=== PATIENT | female | born 1975 | race African-American/Black ===

== ENCOUNTER 2022-02-09 07:04 | Inpatient (IN) | payer MEDICARE, OTHER ==
[~2022-02-09] VITALS: Ht 160 cm; Wt 62.1 kg
--- NOTE | 2022-02-09 07:55 | NUR ---
TECH AT BEDSIDE FOR EKG
--- NOTE | 2022-02-09 08:00 | NUR ---
LAC #20, BLOOD DRAWN AND COLLECTED BY PHLEB AT BEDSIDE.
[2022-02-09 08:05] LABS: BASOPHILS # (AUTO) 0.1 K/uL (0.0-0.2); EOSINOPHILS % (AUTO) 0.8 % (0.0-6.0); HEMATOCRIT 27 % (33-45); HEMOGLOBIN 9.7 g/dL (11.5-14.8); LYMPHOCYTES # (AUTO) 0.4 K/uL (0.8-4.8); LYMPHOCYTES % (AUTO) 4.3 % (20.0-44.0); MEAN CORPUSCULAR HGB CONC 35 g/dl (31.0-36.0); MEAN CORPUSCULAR VOLUME 92 fL (82-100); MONOCYTES # (AUTO) 0.6 K/uL (0.1-1.30); MONOCYTES % (AUTO) 5.9 % (2.0-12.0); NEUTROPHILS # (AUTO) 8.7 K/uL (1.8-8.9); PLATELET COUNT (AUTO) 322 K/uL (150-450); RED BLOOD CELL COUNT(AUTO) 2.98 MIL/uL (4.0-5.2); WHITE BLOOD COUNT (AUTO) 9.9 K/uL (4.3-11.0)
[2022-02-09] MEDS ORDERED: MORPHINE SULFATE INJ 2 MG/ML DISP.SYRIN IV ONE ×2 (08:30→12:00)
[2022-02-09] MEDS ORDERED: MORPHINE SULFATE INJ 4 MG/ML DISP.SYRIN ONE ×2 (08:31→12:11)
--- NOTE | 2022-02-09 08:45 | NUR ---
COVID SWAB COLLECTED AND SENT TO LAB
[2022-02-09] MEDS ORDERED: IOHEXOL-350 100 ML VIAL IV ONE (08:52)
[2022-02-09] MEDS ORDERED: IV NS 0.9% 250 ML IV ONE (08:53)
[2022-02-09] MEDS ORDERED: CT SWABBABLE VALVE TRANS SET 1 EA INFUS.SET MC ONE (08:53)
[2022-02-09 09:00] LABS: CALCIUM, SERUM 8.4 mg/dL (8.5-10.1); CARBON DIOXIDE 23 mmol/L (21-32); CHLORIDE 103 mmol/L (98-107); CREATININE 0.7 mg/dL (0.6-1.3); GLUCOSE 125 mg/dL (74-106); POTASSIUM 3.4 mmol/L (3.5-5.1); SODIUM SERUM 138 mmol/L (136-145)
[2022-02-09] MEDS ORDERED: ONDANSETRON HCL/PF 4 MG/2 ML VIAL ONE (09:12)
[2022-02-09] MEDS ORDERED: GABA300C PO (09:13)
[2022-02-09] MEDS ORDERED: APIX5TAB PO (09:13)
[2022-02-09] MEDS ORDERED: APIX2.5T PO (09:13)
[2022-02-09] MEDS ORDERED: LISI2.5T2 PO (09:13)
[2022-02-09] MEDS ORDERED: VOXE500T PO (09:13)
[2022-02-09] MEDS ORDERED: ACET600C PO (09:14)
[2022-02-09] MEDS ORDERED: FERR325T23 PO (09:14)
[2022-02-09] MEDS ORDERED: CHOL200059 PO (09:14)
[2022-02-09] MEDS ORDERED: [UNRECOGNIZED DRUG - CODE] PO (09:14)
[2022-02-09] MEDS ORDERED: FOLI0.8T3 PO (09:14)
[2022-02-09] MEDS ORDERED: MULT-439 PO (09:14)
[2022-02-09] MEDS ORDERED: HYDR500C2 PO ×2 (09:14)
[2022-02-09] MEDS ORDERED: RIBO100T6 PO (09:14)
[2022-02-09] MEDS ORDERED: CALC-1143 PO (09:14)
[2022-02-09] MEDS ORDERED: ONDANSETRON HCL/PF 4 MG/2 ML VIAL IV ONE (09:30)
--- NOTE | 2022-02-09 11:10 | NUR ---
DR LAINEY CEBALLOS (HEMATOLOGY/ONCOLOGY) [phone]
--- NOTE | 2022-02-09 11:16 | NUR ---
CALLED DR. CEBALLOS'S OFFICE, PER DRUG DEPARTMENT WORKER, DR CEBALLOS IS NOT AVAILABLE AT THIS TIME BUT HAS A NURSE AVAILABLE.
--- NOTE | 2022-02-09 11:20 | NUR ---
DR MCKAY ON THE PHONE W/ CHONG MANNING AT DR. CEBALLOS'S OFFICE
[2022-02-09 11:27] LABS: UREA NITROGEN, BLOOD 14 mg/dL (7-18)
--- NOTE | 2022-02-09 11:43 | NUR ---
PAGED EPIC OUTREACH WORKER
--- NOTE | 2022-02-09 11:44 | NUR ---
EPIC CONTACT WORKER AND ER MD TALKING ON PHONE
[2022-02-09] MEDS ORDERED: hydrALAZINE HCL IV 20 MG VIAL IV PRN (12:00)
[2022-02-09] MEDS ORDERED: ONDANSETRON HCL/PF 4 MG/2 ML VIAL IVP PRN (12:00)
[2022-02-09] MEDS ORDERED: MAG HYDROX/AL HYDROX/SIMETH 30 ML UDC PO PRN (12:00)
[2022-02-09] MEDS ORDERED: IV NS 0.9% 1,000 ML IV SCH (12:00)
--- NOTE | 2022-02-09 12:09 | NUR ---
PT SEEN BY DR BURKS AT BEDSIDE
[2022-02-09] MEDS ORDERED: MORPHINE SULFATE INJ 2 MG/ML DISP.SYRIN ONE (12:10)
--- NOTE | 2022-02-09 12:22 | NUR ---
[facility] AT BEDSIDE FOR ULTRASOUND
--- NOTE | 2022-02-09 13:23 | NUR ---
BED 321-1. NURSE AMINA
--- NOTE | 2022-02-09 13:27 | NUR ---
ROOM 328-1
--- NOTE | 2022-02-09 14:01 | NUR ---
PT REPORT GIVEN TO CHONG SOTO
--- NOTE | 2022-02-09 14:25 | NUR ---
ADMISSION NOTES: ADMITTED A 46YO FEMALE PT, TRANSFERRED VIA GURNEY,PT ALERT AND ORIENTED X 4 AND ABLE TO VERBALIZED NEEDS. PT IN PAIN, NO CARDIAC OR RESPIRATORY DISTRESS NOTED. PT ON AUDIOVISUAL LIBRARIAN WITH CURRENT READING OF SINUS RHYTHM 63 BPM. IV ACCESS ON LAC GAUGE 20 PATENT INTACT AND INFUSING NS 150ML/HR. NO ABDOMINAL DISTENTION, NOTED WITH OLD SURGICAL SITE ON RIGHT UPPER ABDOMEN (BILIARY STONE REMOVAL AND LIVER BIOPSIES). ALL BELONGINGS LISTED AND SIGNED, MONEY WAS GIVEN TO BROTHER. IDENTIFICATION IN PLACE. PT STABLE VS.
--- NOTE | 2022-02-09 14:30 | NUR ---
pt transferred to 328-1 via [facility] acls protocol. warm handoff given to yee pérez
[2022-02-09] MEDS: MORPHINE SULFATE INJ 2 MG/ML DISP.SYRIN IV PRN ×3 (14:35→21:09)
[2022-02-09] MEDS: IV NS 0.9% 1,000 ML IV PRN (15:03)
[2022-02-09] MEDS ORDERED: diphenhydrAMINE HCL 50 MG/ML VIAL IV PRN (16:00)
[2022-02-09] MEDS: FERROUS SULFATE (325 MG) 325 MG/TAB TABLET PO SCH (16:25)
[2022-02-09] MEDS: GABAPENTIN 300 MG CAPSULE PO SCH (16:26)
[2022-02-09] MEDS ORDERED: RIBOFLAVIN PO SCH (17:00)
[2022-02-09] MEDS ORDERED: HYDROMORPHONE 1 MG/1 ML DISP.SYRIN IV ONE ×2 (18:30→19:00)
[2022-02-09] MEDS ORDERED: POTASSIUM CHLORIDE 20 MEQ TAB.PRT.SR PO ONE (18:30)
--- NOTE | 2022-02-09 19:33 | NUR ---
PROMOTION PRODUCER CLOSING NOTES: PT IN BED RESTING, ALERT AND ORIENTED X 4 AND ABLE TO MAKE NEEDS KNOWN,NO SOB OR CARDIAC DISTRESS ON O2 INHALATION @ 2LPM VIA NC. WINDOWS DEPLOYMENT TECHNICIAN WITH CURRENT READING SR 78 BPM. IV ACCESS ON LAC GAUGE 20 NS 150 ML/HR. SAFETY MEASURES MAINTAINED. BED LOCKED AND IN LOWEST POSITION, SIDE RAILS UP X 2. CALL LIGHT IN EASY REACH. ENDORSED TO FERMENTATION OPERATOR FOR NATACHA.
[2022-02-09 20:08] LABS: HEMOGLOBIN 9.8 g/dL (11.5-14.8)
--- NOTE | 2022-02-09 20:30 | NUR ---
TELE BOOKING AGENT INITIAL NOTES Received pt in bed with IVF of Ns at 150ml/hr infusing on her left AC patent and intact. Pt still eating her dinner at this time. no aspiration noted. Respiration even and non-labored . skin warm to touch .pt on tele SR with PVC's per monitor . Kept her warm and comfortable at all times. Encourage her to use the call light if she needs help or assistance. will continue monitoring.
[2022-02-09 21:04] VITALS: BP 113/67
[2022-02-09] MEDS: VOXELOTOR 500 MG PO SCH (22:38)
[2022-02-09] MEDS: APIXABAN 2.5 MG TABLET PO SCH (22:38)
[2022-02-09] MEDS: ACETAMINOPHEN 325 MG TABLET PO PRN (22:39)
[2022-02-09] MEDS: LISINOPRIL (5MG) 5 MG TABLET PO SCH (22:40)
[2022-02-10] VITALS (7 sets, daily range): BP systolic 105–119; BP diastolic 60–73
[2022-02-10] MEDS: MORPHINE SULFATE INJ 2 MG/ML DISP.SYRIN IV PRN ×2 (01:17→14:59)
[2022-02-10] MEDS: IV NS 0.9% 1,000 ML IV PRN ×2 (02:01→18:09)
[2022-02-10] MEDS: ACETAMINOPHEN 325 MG TABLET PO PRN (03:36)
[2022-02-10] MEDS ORDERED: HYDROCODONE/APAP 5/325MG TABLET PO ONE (04:00)
--- NOTE | 2022-02-10 05:18 | NUR ---
hotel breakfast attendant notes Powderly tablet given as ordered per generalized pain . Md aware that pt allergy with codeine and hydromorphone , pt also aware regarding her allergy and she stated that norco 5/325 the one that she's taking at home and doesn't have any adverse reaction . will continue monitoring.
--- NOTE | 2022-02-10 07:03 | NUR ---
tele clutch operator notes Pt awake and wants to used the restroom, ambulate with some assistance. no signs of any distress noted all due meds given . still with IVF of NS at 150 ml/hr . Pt. Tele SR heart rate 94 . Kept her warm and comfortable at all times. will endorse to am nurse for continuity of care.
[2022-02-10 07:11] LABS: ALBUMIN 3.7 g/dL (3.4-5.0); BILIRUBIN,TOTAL 1.1 mg/dL (0.2-1.0); CALCIUM, SERUM 7.8 mg/dL (8.5-10.1); CREATININE 0.7 mg/dL (0.6-1.3); MAGNESIUM 1.9 mg/dL (1.8-2.4); PHOSPHORUS 3.3 mg/dL (2.5-4.9); TOTAL PROTEIN, SERUM 6.8 g/dL (6.4-8.2)
[2022-02-10 07:42] LABS: BASOPHILS % (AUTO) 0.3 % (0.0-2.0); EOSINOPHILS % (AUTO) 0.5 % (0.0-6.0); HEMATOCRIT 26 % (33-45); HEMOGLOBIN 8.9 g/dL (11.5-14.8); LYMPHOCYTES # (AUTO) 1.2 K/uL (0.8-4.8); LYMPHOCYTES % (AUTO) 8.8 % (20.0-44.0); MEAN CORPUSCULAR HGB CONC 35 g/dl (31.0-36.0); MEAN CORPUSCULAR VOLUME 93 fL (82-100); MONOCYTES # (AUTO) 1.5 K/uL (0.1-1.30); MONOCYTES % (AUTO) 10.5 % (2.0-12.0); NEUTROPHILS # (AUTO) 11.3 K/uL (1.8-8.9); NEUTROPHILS % (AUTO) 79.9 % (43.0-81.0); PLATELET COUNT (AUTO) 278 K/uL (150-450); RED BLOOD CELL COUNT(AUTO) 2.74 MIL/uL (4.0-5.2); WHITE BLOOD COUNT (AUTO) 14.1 K/uL (4.3-11.0)
--- NOTE | 2022-02-10 07:50 | NUR ---
MS CARBURETOR REBUILDER OPENING NOTES RECEIVED PT IN BED AWAKE, A/O X 4 AND ABLE TO MAKE NEEDS KNOWN, NO SOB OR CARDIAC DISTRESS ON O2 INHALATION @ 2LPM VIA NC. WATERSHED PROGRAM MANAGER WITH CURRENT READING SR 82 BPM. IV ACCESS ON LAC GAUGE 20 NS 150 ML/HR. SAFETY MEASURES MAINTAINED. BED LOCKED AND IN LOWEST POSITION, SIDE RAILS UP X 2. CALL LIGHT IN EASY REACH. WILL CONTINUE TO MONITOR
[2022-02-10] MEDS: GABAPENTIN 300 MG CAPSULE PO SCH ×2 (08:42→16:04)
[2022-02-10] MEDS: CALCIUM CARBONATE 500 MG TAB.CHEW PO SCH (08:42)
[2022-02-10] MEDS: MULTIVIT W/MINERALS 1 TAB TABLET PO SCH (08:42)
[2022-02-10] MEDS: CHOLECALCIFEROL 1,000 UNIT TABLET (VIT D3) PO SCH (08:43)
[2022-02-10] MEDS: FERROUS SULFATE (325 MG) 325 MG/TAB TABLET PO SCH ×2 (08:43→16:05)
[2022-02-10] MEDS: FOLIC ACID 1 MG TABLET PO SCH (08:43)
[2022-02-10] MEDS: APIXABAN 5 MG TABLET PO SCH (08:47)
[2022-02-10 08:57] LABS: HEMOGLOBIN 8.5 g/dL (11.5-14.8)
[2022-02-10] MEDS: HYDROXYUREA 500 MG CAPSULE PO SCH ×3 (09:00→12:55)
[2022-02-10] MEDS ORDERED: METHYLSULFONYLMETHANE PO SCH (09:00)
[2022-02-10] MEDS ORDERED: ACETYLCYSTEINE 600 MG PO SCH (09:00)
[2022-02-10] MEDS ORDERED: HYDROXYUREA 500 MG CAPSULE PO SCH (09:00)
[2022-02-10] MEDS: HYDROCODONE/APAP 5/325MG TABLET PO PRN ×3 (10:34→22:15)
--- NOTE | 2022-02-10 10:48 | NUR ---
pt complains of constipation. called dr Busby for order
[2022-02-10] MEDS: DOCUSATE SODIUM 100 MG CAPSULE PO SCH ×3 (10:57→16:10)
[2022-02-10] MEDS ORDERED: DOCUSATE SODIUM 100 MG CAPSULE PO PRN (11:00)
--- NOTE | 2022-02-10 14:52 | NUR ---
with allergy to contrast per patient. Likewise, patient requested Zofran prior to CT Angio procedure. Radiology was informed thru Octavio
--- NOTE | 2022-02-10 19:12 | NUR ---
TAXATION ECONOMIST CLOSING NOTES: PT IN BED RESTING, A/O X 4 AND ABLE TO MAKE NEEDS KNOWN, NO SOB OR CARDIAC DISTRESS ON O2 INHALATION @ 2LPM VIA NC. ASSET PROTECTION DETECTIVE WITH CURRENT READING SR 90 BPM. IV ACCESS ON LAC GAUGE 20 NS 150 ML/HR. SAFETY MEASURES MAINTAINED. BED LOCKED, IN LOWEST POSITION, SIDE RAILS UP X 2. CALL LIGHT IN EASY REACH. ENDORSED TO MANAGING DIRECTOR ATLAS FOR NATACHA.
--- NOTE | 2022-02-10 20:22 | NUR ---
TELE MORNING NEWS PRODUCER INITIAL NOTES Got report from am nurse and seen patient in bed still eating her dinner no aspiration or any N/V noted. . IVF Ns at 150ml/hr infusing at this time . Pt still with O2 at 2 liters via NC . no signs of any distress noted. Pt seems comfortable after norco tablet given earlier. I told her about her medication for tonight and pt understood well. Tele SR heart rate 89 . kept her warm and comfortable at all times. place call light at reach. will continue monitoring.
[2022-02-10 20:23] LABS: HEMOGLOBIN 8.9 g/dL (11.5-14.8)
[2022-02-10] MEDS: LISINOPRIL (5MG) 5 MG TABLET PO SCH (22:15)
[2022-02-10] MEDS: APIXABAN 2.5 MG TABLET PO SCH (22:16)
[2022-02-10] MEDS: VOXELOTOR 500 MG PO SCH (22:17)
--- NOTE | 2022-02-10 22:24 | NUR ---
CORPORATE STRATEGY ANALYST NOTES Routine meds given as well as Florence tablet for her generalized pain. Tele SR per monitor. Kept her warm and comfortable at all times. will continue monitoring. place call light at reach.
[2022-02-11] VITALS (7 sets, daily range): BP systolic 109–127; BP diastolic 58–71
[2022-02-11] MEDS: IV NS 0.9% 1,000 ML IV PRN ×3 (02:30→17:20)
[2022-02-11] MEDS: HYDROCODONE/APAP 5/325MG TABLET PO PRN ×3 (02:30→10:01)
--- NOTE | 2022-02-11 07:17 | NUR ---
tele office auditor closing notes Pt awake and alert asking for norco tablet for her generalized pain specially her back . No signs of any dizziness or any N/V. tele SR pr monitor. Assisted her to bathroom then back to bed for pt safety. kept her comfortable at all times. All due meds given and all needs met. call light at reach and bed in low and lock in position. Endorse to am nurse for continuity of care.
[2022-02-11 07:30] LABS: BASOPHILS % (AUTO) 0.2 % (0.0-2.0); EOSINOPHILS % (AUTO) 0.4 % (0.0-6.0); HEMATOCRIT 25 % (33-45); HEMOGLOBIN 8.6 g/dL (11.5-14.8); LYMPHOCYTES # (AUTO) 1.3 K/uL (0.8-4.8); MEAN CORPUSCULAR HGB CONC 35 g/dl (31.0-36.0); MEAN CORPUSCULAR VOLUME 93 fL (82-100); MONOCYTES # (AUTO) 1.1 K/uL (0.1-1.30); MONOCYTES % (AUTO) 7.6 % (2.0-12.0); NEUTROPHILS # (AUTO) 11.8 K/uL (1.8-8.9); NEUTROPHILS % (AUTO) 82.8 % (43.0-81.0); PLATELET COUNT (AUTO) 221 K/uL (150-450); RED BLOOD CELL COUNT(AUTO) 2.65 MIL/uL (4.0-5.2); WHITE BLOOD COUNT (AUTO) 14.3 K/uL (4.3-11.0)
[2022-02-11 07:44] LABS: BILIRUBIN,DIRECT 0.6 mg/dL (0.0-0.2); BILIRUBIN,TOTAL 1.7 mg/dL (0.2-1.0); CALCIUM, SERUM 7.6 mg/dL (8.5-10.1); CREATININE 0.6 mg/dL (0.6-1.3); POTASSIUM 3.9 mmol/L (3.5-5.1)
--- NOTE | 2022-02-11 07:55 | NUR ---
REHAB TECH OPENING NOTES RECEIVED PT IN BED AWAKE, A/O X 4 AND ABLE TO MAKE NEEDS KNOWN, NO SOB NOR CARDIAC DISTRESS ON O2 INHALATION @ 2LPM VIA NC. DENIES HAVING PAIN AT THE MOMENT. TRACK REPAIR SUPERVISOR WITH CURRENT READING ST IN 100S BPM. IV ACCESS ON LAC GAUGE 20. NS IV FLUID INFUSING @ 150 ML/HR. SAFETY MEASURES MAINTAINED. BED LOCKED AND IN LOWEST POSITION, SIDE RAILS UP X 2. CALL LIGHT IN EASY REACH. WILL CONTINUE TO MONITOR
[2022-02-11] MEDS: GABAPENTIN 300 MG CAPSULE PO SCH ×2 (09:59→17:19)
[2022-02-11] MEDS: DOCUSATE SODIUM 100 MG CAPSULE PO SCH ×2 (09:59→17:19)
[2022-02-11] MEDS: CALCIUM CARBONATE 500 MG TAB.CHEW PO SCH (09:59)
[2022-02-11] MEDS: FERROUS SULFATE (325 MG) 325 MG/TAB TABLET PO SCH ×2 (09:59→17:19)
[2022-02-11] MEDS: FOLIC ACID 1 MG TABLET PO SCH (09:59)
[2022-02-11] MEDS: CHOLECALCIFEROL 1,000 UNIT TABLET (VIT D3) PO SCH (10:00)
[2022-02-11] MEDS: HYDROXYUREA 500 MG CAPSULE PO SCH (10:01)
[2022-02-11] MEDS: MULTIVIT W/MINERALS 1 TAB TABLET PO SCH (10:02)
[2022-02-11] MEDS: APIXABAN 5 MG TABLET PO SCH (10:03)
[2022-02-11] MEDS: MORPHINE SULFATE INJ 2 MG/ML DISP.SYRIN IV PRN ×2 (15:51→22:09)
--- NOTE | 2022-02-11 18:53 | NUR ---
CARDING MACHINE OPERATOR CLOSING NOTE: PT IN BED RESTING, A/O X 4 AND ABLE TO MAKE NEEDS KNOWN, NO SOB OR CARDIAC DISTRESS ON O2 INHALATION @ 2LPM VIA NC. DIVISIONAL HUMAN RESOURCES DIRECTOR WITH CURRENT READING ST @ 116 BPM. ABDOMINAL ULTASOUND COMPLETED TODAY. POC IS NEXT TO DO CT OF HEART WITH 3D VIEW ON Sunday02/13/22. IV ACCESS ON LAC GAUGE 20 NS 150 ML/HR. SAFETY MEASURES MAINTAINED. BED LOCKED, IN LOWEST POSITION, SIDE RAILS UP X 2. CALL LIGHT IN EASY REACH. ENDORSED TO DIRECTOR OF SPEECH PATHOLOGY FOR NATACHA.
--- NOTE | 2022-02-11 19:30 | NUR ---
A P MANAGER OPENING NOTE RECEIVED PT AWAKE IN BED. A/O X4 AND ABLE TO MAKE NEEDS KNOWN. PT ON O2 @ 2LPM VIA NC, TOLERATING WELL. NO SOB OR S/S OF RESPIRATORY DISTRESS. BREATHING EVEN AND UNLABORED. ON EXTERNAL ASSISTANT STORE MANAGER SALES READING ST 116 BPM. IV ACCESS LAC 20G, INTACT AND PATENT, RUNNING NS @ 150 ML/HR. SAFETY PRECAUTIONS IN PLACE. BED IN LOWEST LOCKED POSITION, HOB ELEVATED, SIDE RAILS UP X2, AND CALL LIGHT AND TABLE WITHIN REACH. ALL NEEDS MET AT THIS TIME.
[2022-02-11 20:33] LABS: HEMOGLOBIN 8.1 g/dL (11.5-14.8)
[2022-02-11] MEDS ORDERED: CEFEPIME 1 GM in IV D5W 50 ML IV SCH (21:00)
[2022-02-11] MEDS ORDERED: VANCOMYCIN 1 GM in IV D5W 250ml IV ONE (21:30)
--- NOTE | 2022-02-11 21:30 | NUR ---
RN NOTE INFORMED CHARGE NURSE AND OPERATIONS BOARDMAN CEFEPIME AND VANCOMYCIN ORDERED. WILL ADMINISTER ONCE MEDICATION IS BROUGHT TO THE UNIT.
[2022-02-11] MEDS: ACETAMINOPHEN 325 MG TABLET PO PRN (21:41)
[2022-02-11] MEDS: VOXELOTOR 500 MG PO SCH (21:41)
--- NOTE | 2022-02-11 21:41 | NUR ---
RN NOTE PT NOTED WITH FEVER OF 102. ADMINISTERED TYLENOL ORDERED FOR FEVER. INFORMED RX SPECIALIST GINETTE WITH NEW ORDERS NOTED AND CARRIED OUT. ALL NEEDS MET AT THIS TIME.
[2022-02-11] MEDS: APIXABAN 2.5 MG TABLET PO SCH (21:42)
[2022-02-11] MEDS: LISINOPRIL (5MG) 5 MG TABLET PO SCH (21:43)
[2022-02-11] MEDS ORDERED: CEFEPIME 1 GM VIAL ONE (21:47)
--- NOTE | 2022-02-11 22:11 | NUR ---
RN NOTE PT COMPLAINED OF GENERALIZED PAIN 10/22. ADMINISTERED MORPHINE 4 MG FOR SEVERE PAIN ORDERED. MADE COMFORTABLE IN BED. ALL NEEDS MET AT THIS TIME.
[2022-02-11] MEDS ORDERED: VANCOMYCIN 1 GM VIAL ONE (22:17)
[2022-02-11 22:58] LABS: BILIRUBIN,URINE NEGATIVE (NEGATIVE); COLOR,URINE YELLOW (YELLOW); LEUKOCYTE ESTERASE ,URINE NEGATIVE (NEGATIVE); NITRITE, URINE NEGATIVE (NEGATIVE); PH,URINE 6.5 (5.0-8.0); PROTEIN,URINE TRACE mg/dl (NEGATIVE); UGLUCOSE NEGATIVE (NEGATIVE); UROBILINOGEN,URINE 0.2 EU/dL (0.2)
[2022-02-11 23:01] LABS: BACTERIA,URINE None seen /HPF (None Seen); SQUAMOUS EPITHELIAL CELL,UR Few /HPF (None Seen); WBC,URINE 0-2 /HPF (0-3)
--- NOTE | 2022-02-11 23:48 | NUR ---
RN NOTE CURRENT TEMPERATURE 98.7. ALL NEEDS MET AT THIS TIME.
[2022-02-12] VITALS: BP 109/61
[2022-02-12 04:00] VITALS: BP 107/64
[2022-02-12] MEDS: HYDROCODONE/APAP 5/325MG TABLET PO PRN ×3 (04:08→14:18)
[2022-02-12] MEDS: IV NS 0.9% 1,000 ML IV PRN (04:15)
--- NOTE | 2022-02-12 04:47 | NUR ---
RN NOTE PT COMPLAINED OF GENERALIZED PAIN 07/22. ADMINISTERED NORCO 5-325 MG FOR MODERATE PAIN ORDERED. MADE COMFORTABLE IN BED. ALL NEEDS MET AT THIS TIME.
--- NOTE | 2022-02-12 06:50 | NUR ---
GAME OPERATOR CLOSING NOTE PT AWAKE IN BED. A/O X4 AND ABLE TO MAKE NEEDS KNOWN. PT ON O2 @ 3LPM VIA NC, TOLERATING WELL. NO SOB OR S/S OF RESPIRATORY DISTRESS. BREATHING EVEN AND UNLABORED. ON EXTERNAL BLUING OVEN TENDER READING SR 95 BPM. IV ACCESS LAC 20G, INTACT AND PATENT, RUNNING NS @ 150 ML/HR. ALL DUE MEDS GIVEN ORDERED. SAFETY PRECAUTIONS IN PLACE AT ALL TIMES. BED IN LOWEST LOCKED POSITION, HOB ELEVATED, SIDE RAILS UP X2, AND CALL LIGHT AND TABLE WITHIN REACH. ALL NEEDS MET AT THIS TIME AND WILL ENDORSE TO ONCOMING NURSE FOR NATACHA.
[2022-02-12 07:00] VITALS: BP 106/60
[2022-02-12 07:21] LABS: BASOPHILS % (AUTO) 0.3 % (0.0-2.0); EOSINOPHILS % (AUTO) 0.5 % (0.0-6.0); HEMATOCRIT 22 % (33-45); HEMOGLOBIN 7.6 g/dL (11.5-14.8); LYMPHOCYTES % (AUTO) 7.1 % (20.0-44.0); MEAN CORPUSCULAR HGB CONC 35 g/dl (31.0-36.0); MEAN CORPUSCULAR VOLUME 92 fL (82-100); MONOCYTES # (AUTO) 1.3 K/uL (0.1-1.30); MONOCYTES % (AUTO) 9.2 % (2.0-12.0); NEUTROPHILS # (AUTO) 11.7 K/uL (1.8-8.9); NEUTROPHILS % (AUTO) 82.9 % (43.0-81.0); PLATELET COUNT (AUTO) 210 K/uL (150-450); RED BLOOD CELL COUNT(AUTO) 2.37 MIL/uL (4.0-5.2); WHITE BLOOD COUNT (AUTO) 14.1 K/uL (4.3-11.0)
[2022-02-12 07:30] LABS: CALCIUM, SERUM 7.7 mg/dL (8.5-10.1); CREATININE 0.5 mg/dL (0.6-1.3); POTASSIUM 2.9 mmol/L (3.5-5.1)
--- NOTE | 2022-02-12 07:30 | NUR ---
CUSTOMER SUPPORT ANALYST OPENING NOTES RECEIVED PATIENT ON BED, AWAKE AND A/O X4. ON O2 AT 3LPM VIA NASAL CANNULA TOLERATING WELL. NO SOB NOTED. NOT IN DISTRESS. WITH NO COMPLAINTS OF PAIN AT THIS TIME. WITH IV ACCESS AT THE LEFT AC G20 WITH IVF NS AT 150ML/HR INFUSING WELL. ON TELE MONITOR CURRENTLY READING SINUS TACHYCARDIA AT 108BPM. SAFETY MEASURES IN PLACED. CALL LIGHT WITHIN REACH. BED ON LOWEST LOCKED POSITION, SIDE RAILS UP X2. WILL CONTINUE TO MONITOR.
[2022-02-12 08:52] LABS: HEMOGLOBIN 7.8 g/dL (11.5-14.8)
[2022-02-12] MEDS: CALCIUM CARBONATE 500 MG TAB.CHEW PO SCH (09:45)
[2022-02-12] MEDS: DOCUSATE SODIUM 100 MG CAPSULE PO SCH ×2 (09:45→16:04)
[2022-02-12] MEDS: GABAPENTIN 300 MG CAPSULE PO SCH ×2 (09:45→16:04)
[2022-02-12] MEDS: FOLIC ACID 1 MG TABLET PO SCH (09:46)
[2022-02-12] MEDS: FERROUS SULFATE (325 MG) 325 MG/TAB TABLET PO SCH (09:46)
[2022-02-12] MEDS: CHOLECALCIFEROL 1,000 UNIT TABLET (VIT D3) PO SCH (09:46)
[2022-02-12] MEDS: HYDROXYUREA 500 MG CAPSULE PO SCH (09:46)
[2022-02-12] MEDS: MULTIVIT W/MINERALS 1 TAB TABLET PO SCH (09:46)
[2022-02-12] MEDS: CEFEPIME 2 GM in IV D5W 100 ML IV SCH ×2 (09:47→21:06)
[2022-02-12] MEDS ORDERED: MAGN200T4 PO (09:56)
[2022-02-12] MEDS: VANCOMYCIN 1 GM in IV D5W 250ml IV SCH ×2 (11:51→22:22)
[2022-02-12] MEDS: POTASSIUM CHLORIDE 20 MEQ TAB.PRT.SR PO SCH ×3 (11:51→15:36)
[2022-02-12] MEDS: APIXABAN 5 MG TABLET PO SCH (11:52)
[2022-02-12 13:49] LABS: IRON, SERUM 26 ug/dl (50-175); TOTAL IRON BINDING CAPACITY 125 ug/dl (250-450)
[2022-02-12 14:23] LABS: FERRITIN 707 ng/mL (8-388)
[2022-02-12 16:00] VITALS: BP 110/59
[2022-02-12] MEDS: MAGNESIUM OXIDE 400 MG TABLET PO SCH (16:04)
--- NOTE | 2022-02-12 19:30 | NUR ---
MANAGER ROUTE CLOSING NOTES PATIENT ON BED, RESTING AND A/O X4. ON O2 AT 3LPM VIA NASAL CANNULA TOLERATING WELL. NO SOB NOTED. NOT IN DISTRESS. WITH NO COMPLAINTS OF PAIN AT THIS TIME. WITH IV ACCESS AT THE LEFT AC G20 SALINE LOCKED, PATENT AND INTACT. ON TELE MONITOR CURRENTLY READING SINUS TACHYCARDIA AT 106BPM. DUE MEDS GIVEN. SAFETY MEASURES IN PLACED. CALL LIGHT WITHIN REACH. BED ON LOWEST LOCKED POSITION, SIDE RAILS UP X2. WILL ENDORSE TO NEXT SHIFT FOR NATACHA.
[2022-02-12 20:00] VITALS: BP 117/63
[2022-02-12 20:25] LABS: HEMOGLOBIN 7.7 g/dL (11.5-14.8)
--- NOTE | 2022-02-12 20:30 | NUR ---
MS/TELE/RN PATIENT IS IN BED AWAKE, ALERT, ORIENTED, NO C/O PAIN AT THIS TIME, NO SIGNS OF DISTRESS NOTED, CALL LIGHT IN REACH, WILL MONITOR.
[2022-02-12] MEDS: MORPHINE SULFATE INJ 2 MG/ML DISP.SYRIN IV PRN (20:58)
[2022-02-12] MEDS: ACETAMINOPHEN 325 MG TABLET PO PRN (21:02)
--- NOTE | 2022-02-12 21:02 | NUR ---
MS/TELE/RN TEMP 102.4, PATIENT REFUSED COOLING MEASURES, TYLENOL 650 MG PO WAS GIVEN ORDERED. WILL MONITOR.
[2022-02-12] MEDS: VOXELOTOR 500 MG PO SCH (22:22)
[2022-02-12] MEDS: LISINOPRIL (5MG) 5 MG TABLET PO SCH (22:24)
[2022-02-12] MEDS: APIXABAN 2.5 MG TABLET PO SCH (22:25)
[2022-02-13] VITALS: BP 116/67
[2022-02-13] MEDS: MORPHINE SULFATE INJ 2 MG/ML DISP.SYRIN IV PRN ×2 (03:11→22:07)
[2022-02-13 04:00] VITALS: BP 100/60
--- NOTE | 2022-02-13 06:03 | NUR ---
MS/TELE/RN PATIENT IS AWAKE, PAIN IS TOLERABLE AT THIS TIME, NO DISTRESS NOTED, CALL LIGHT IN REACH, ALL NEEDS ATTENDED AT THIS TIME, WILL CONTINUE TO MONITOR.
[2022-02-13 06:45] LABS: BASOPHILS # (AUTO) 0.1 K/uL (0.0-0.2); BASOPHILS % (AUTO) 0.5 % (0.0-2.0); EOSINOPHILS % (AUTO) 1.4 % (0.0-6.0); HEMATOCRIT 21 % (33-45); HEMOGLOBIN 7.5 g/dL (11.5-14.8); LYMPHOCYTES # (AUTO) 0.6 K/uL (0.8-4.8); LYMPHOCYTES % (AUTO) 4.4 % (20.0-44.0); MEAN CORPUSCULAR HGB CONC 35 g/dl (31.0-36.0); MEAN CORPUSCULAR VOLUME 92 fL (82-100); MONOCYTES # (AUTO) 1.5 K/uL (0.1-1.30); MONOCYTES % (AUTO) 11.4 % (2.0-12.0); NEUTROPHILS # (AUTO) 10.7 K/uL (1.8-8.9); NEUTROPHILS % (AUTO) 82.3 % (43.0-81.0); PLATELET COUNT (AUTO) 214 K/uL (150-450); RED BLOOD CELL COUNT(AUTO) 2.34 MIL/uL (4.0-5.2)
[2022-02-13 07:21] LABS: CALCIUM, SERUM 8.1 mg/dL (8.5-10.1); CREATININE 0.6 mg/dL (0.6-1.3); POTASSIUM 3.8 mmol/L (3.5-5.1)
--- NOTE | 2022-02-13 07:30 | NUR ---
RN Opening Note PT AOx4 able to express her own concerns. Patient in bed, made aware of plan of care, verbalized understanding. Patient with no signs of distress or discomfort, IV site with no signs of infiltration. All safety precautions taken, call light and table within reach, bed at lowest position.
[2022-02-13 08:00] VITALS: BP 97/57
[2022-02-13 08:04] LABS: HEMOGLOBIN 7.9 g/dL (11.5-14.8)
[2022-02-13] MEDS: FOLIC ACID 1 MG TABLET PO SCH (08:34)
[2022-02-13] MEDS: DOCUSATE SODIUM 100 MG CAPSULE PO SCH ×2 (08:34→17:06)
[2022-02-13] MEDS: MULTIVIT W/MINERALS 1 TAB TABLET PO SCH (08:34)
[2022-02-13] MEDS: CHOLECALCIFEROL 1,000 UNIT TABLET (VIT D3) PO SCH (08:34)
[2022-02-13] MEDS: GABAPENTIN 300 MG CAPSULE PO SCH ×2 (08:34→17:05)
[2022-02-13] MEDS: CALCIUM CARBONATE 500 MG TAB.CHEW PO SCH (08:34)
[2022-02-13] MEDS: HYDROCODONE/APAP 5/325MG TABLET PO PRN ×3 (08:35→17:12)
[2022-02-13] MEDS: MAGNESIUM OXIDE 400 MG TABLET PO SCH ×2 (08:35→17:06)
[2022-02-13] MEDS ORDERED: HYDROXYUREA 500 MG CAPSULE PO SCH (09:00)
[2022-02-13] MEDS: CEFEPIME 2 GM in IV D5W 100 ML IV SCH ×2 (09:15→20:55)
[2022-02-13] MEDS: APIXABAN 5 MG TABLET PO SCH (09:19)
[2022-02-13 12:00] VITALS: BP 111/67
[2022-02-13] MEDS: VANCOMYCIN 1.25 GM in IV D5W 250 ML IV SCH (12:58)
[2022-02-13 16:00] VITALS: BP 105/62
--- NOTE | 2022-02-13 18:40 | NUR ---
RN Closing Note PT AOx4 able to express her own concerns. Pt remained safe throughout shift, all medications administered as prescribed and care provided as needed. Patient with no signs of distress or discomfort, IV site with no signs of infiltration. All safety precautions taken, call light and table within reach, bed at lowest position. Will endorse to night nurse for continuity of care.
--- NOTE | 2022-02-13 19:30 | NUR ---
noc rn note received patient in bed, a/ox4. no s/s of apparent distress in 2lpm of o2 via nc, breathing deep, unlabored. per patient pain is manageable at this time. noted to have dinner tray at bedside along with some tissues, reporting hemoptysis that started yesterday-- will report to division field inspector. tele monitor reading st with 108 bpm at this time. no iv fluids running at this time. call light within reach, needs attended for now. will continue with patient's plan of care.
[2022-02-13 20:00] VITALS: BP 111/65
--- NOTE | 2022-02-13 20:54 | NUR ---
noc rn note patient reports hemoptysis that started yesterday with 6 occurrence, and 8 occurrence today per patient. per patient it is painful to cough, since she's been coughing since Sunday, but denies blood by then. denies blood in urine nor feces. messaged vice president of contracts, Helen to report situation. call center receptionist ordered sputum culture for now. and for o2 to be titrated up to keep spo2 >95%. Patient now on 5lpm of o2 via nc with saturation of 96%. per hospitalist, Devon angel to give still d/t sickle cell disease. order carried out. will continue to monitor.
[2022-02-13 21:18] LABS: HEMOGLOBIN 7.2 g/dL (11.5-14.8)
[2022-02-13] MEDS: LISINOPRIL (5MG) 5 MG TABLET PO SCH (22:06)
[2022-02-13] MEDS: VOXELOTOR 500 MG PO SCH (22:06)
--- NOTE | 2022-02-13 22:07 | NUR ---
noc rn note patient c/o 8/10 generalized pain more prominent on upper extremity radiating to legs. Given MOrphine 4mg as ordered PRN. will re-assess.
[2022-02-13] MEDS: APIXABAN 2.5 MG TABLET PO SCH (22:22)
[2022-02-13] MEDS: ACETAMINOPHEN 325 MG TABLET PO PRN (23:21)
--- NOTE | 2022-02-13 23:22 | NUR ---
noc rn note low grade fever of 100 even after Voxelotor. Given tylenol as ordered PRN. will re-assess.
[2022-02-14] VITALS: BP 111/72
[2022-02-14] MEDS: VANCOMYCIN 1.25 GM in IV D5W 250 ML IV SCH ×2 (00:10→12:24)
--- NOTE | 2022-02-14 00:21 | NUR ---
noc rn note temperature went down to 99.4. will cont. to monitor.
[2022-02-14] MEDS: HYDROCODONE/APAP 5/325MG TABLET PO PRN ×5 (01:45→20:52)
--- NOTE | 2022-02-14 01:47 | NUR ---
noc rn note patient c/o 6/10 pain after ambulating to the restroom. Given norco 5 as ordered PRN. patient assisted safely in bed.
[2022-02-14 04:00] VITALS: BP 94/58
[2022-02-14 05:15] VITALS: BP 94/58
--- NOTE | 2022-02-14 05:17 | NUR ---
noc rn note temp 98.9 this am. hr 85 this am. will continue to monitor.
--- NOTE | 2022-02-14 05:50 | NUR ---
noc rn note patient woke up c/o 6/10 pain generalized, given norco 5 as ordered PRN. will re-assess.
--- NOTE | 2022-02-14 06:51 | NUR ---
noc rn note patient using restroom at this time. no s/s of apparent distress on room air. pain managed with medications. reading sr at this time with 88 bpm. no fluids running. patient is ambulatory, able to make needs known. call light within reach. needs attended. all scheduled meds administered. safety in place. will endorse to morning shift rn for continuity of patient care.
[2022-02-14 07:00] VITALS: BP 98/58
[2022-02-14 07:09] LABS: BASOPHILS % (AUTO) 0.4 % (0.0-2.0); EOSINOPHILS % (AUTO) 4.5 % (0.0-6.0); LYMPHOCYTES # (AUTO) 1.5 K/uL (0.8-4.8); LYMPHOCYTES % (AUTO) 13.5 % (20.0-44.0); MEAN CORPUSCULAR HGB CONC 34 g/dl (31.0-36.0); MEAN CORPUSCULAR VOLUME 93 fL (82-100); MONOCYTES # (AUTO) 1.1 K/uL (0.1-1.30); MONOCYTES % (AUTO) 9.5 % (2.0-12.0); NEUTROPHILS # (AUTO) 8.2 K/uL (1.8-8.9); NEUTROPHILS % (AUTO) 72.1 % (43.0-81.0); PLATELET COUNT (AUTO) 240 K/uL (150-450); RED BLOOD CELL COUNT(AUTO) 2.11 MIL/uL (4.0-5.2); WHITE BLOOD COUNT (AUTO) 11.4 K/uL (4.3-11.0)
[2022-02-14 07:16] LABS: HEMATOCRIT 20 % (33-45)
[2022-02-14 07:23] LABS: HEMOGLOBIN 6.7 g/dL (11.5-14.8)
--- NOTE | 2022-02-14 07:30 | NUR ---
CAT WAGON OPERATOR OPENING NOTES RECEIVED PATIENT IN BED , AWAKE AND ABLE OT MAKE NEEDS KNOWN , A/O X 4 , ON O2 AT 5 L /MIN AND NO SOB OR DISTRESS NOTED , NO C/ O OF PAIN AND DISCOMFORT , IV ACCESS ON LAC #20 AND RIGHT ARM #20 G SL , SAFETY MEASURES PROVIDED , SIDERAILS X 2 , CALL LIGHT WITHIN REACH AND ON TELE MONITOR WITH READING OF SR 88 , WILL MONITOR COF ANY CHANGES
[2022-02-14 07:36] LABS: CALCIUM, SERUM 8.1 mg/dL (8.5-10.1); CREATININE 0.5 mg/dL (0.6-1.3); POTASSIUM 3.4 mmol/L (3.5-5.1)
[2022-02-14] MEDS ORDERED: POTASSIUM CHLORIDE 20 MEQ TAB.PRT.SR PO SCH (09:00)
[2022-02-14] MEDS: DOCUSATE SODIUM 100 MG CAPSULE PO SCH ×2 (09:52→17:19)
[2022-02-14] MEDS: CALCIUM CARBONATE 500 MG TAB.CHEW PO SCH (09:52)
[2022-02-14] MEDS: FOLIC ACID 1 MG TABLET PO SCH (09:52)
[2022-02-14] MEDS: MULTIVIT W/MINERALS 1 TAB TABLET PO SCH (09:52)
[2022-02-14] MEDS: CEFEPIME 2 GM in IV D5W 100 ML IV SCH ×2 (09:52→21:40)
[2022-02-14] MEDS: GABAPENTIN 300 MG CAPSULE PO SCH ×2 (09:52→17:20)
[2022-02-14] MEDS: CHOLECALCIFEROL 1,000 UNIT TABLET (VIT D3) PO SCH (09:53)
[2022-02-14] MEDS: MAGNESIUM OXIDE 400 MG TABLET PO SCH ×2 (09:53→17:20)
[2022-02-14] MEDS: HYDROXYUREA 500 MG CAPSULE PO SCH (09:57)
[2022-02-14] MEDS: APIXABAN 5 MG TABLET PO SCH (10:32)
[2022-02-14 15:41] LABS: EOSINOPHILS % (MANUAL) 8 % (0-4); LYMPHOCYTES % (MANUAL) 15 % (16-48); MONOCYTES % (MANUAL) 5 % (0-11.0); NEUTROPHILS % (MANUAL) 72 (42-76)
[2022-02-14 16:00] VITALS: BP 100/62
[2022-02-14] MEDS ORDERED: diphenhydrAMINE HCL 50 MG/ML VIAL IV ONE (16:00)
[2022-02-14] MEDS ORDERED: ACETAMINOPHEN 325 MG TABLET PO ONE (16:00)
[2022-02-14] MEDS: MORPHINE SULFATE INJ 2 MG/ML DISP.SYRIN IV PRN (17:19)
[2022-02-14 17:23] LABS: BILIRUBIN,URINE NEGATIVE (NEGATIVE); COLOR,URINE YELLOW (YELLOW); LEUKOCYTE ESTERASE ,URINE NEGATIVE (NEGATIVE); NITRITE, URINE NEGATIVE (NEGATIVE); PROTEIN,URINE NEGATIVE (NEGATIVE); UGLUCOSE NEGATIVE (NEGATIVE); UROBILINOGEN,URINE 0.2 EU/dL (0.2)
--- NOTE | 2022-02-14 18:49 | NUR ---
DRILL SHARPENER CLOSING NOTES PATIENT IN BED , AWAKE AND ABLE OT MAKE NEEDS KNOWN , A/O X 4 , ON O2 AT 5 L /MIN AND NO SOB OR DISTRESS NOTED , C/ O OF PAIN AND DISCOMFORT AND PPAIN MEDS GIVEN ORDERED , IV ACCESS ON LAC #20 AND RIGHT ARM #20 G SL , SAFETY MEASURES PROVIDED , SIDERAILS X 2 , CALL LIGHT WITHIN REACH AND TRANSFER TO PA AND PATIENT WITH HGB OF 6.7 AND SEEN BY SR. DIRECTOR PRODUCT MANAGEMENT ELIZABETH AND WITH ORDER FOR PACK RBC AND PATIENT REFUSED , STILL HAVING HEMOPTYSIS AND WILL STILL CONTINUE TO COLLECT SPUTUM AND PATIENT INSTRUCTED , WILL ENDORSED TO NEXT SHIFT
[2022-02-14 20:00] VITALS: BP 113/71
--- NOTE | 2022-02-14 20:00 | NUR ---
RN OPENING NOTES: RECEIVED PATIENT AWAKE IN BED, BED IN LOW POSITION CALL LIGHTS WITHIN REACH, NO COMPLAIN OF PAIN AND DISCOMFORT AT THIS TIME, ON O2 INHALATION AT 5LPM SATURATING WELL, PATIENT IS A/O X4 ABLE TO MAKE NEEDS KNOWN, AMBULATORY WITH SUPERVISION, IV LINE AT RIGHT ARM#20SL, NO BLEEDING WAS OBSERVED DURING THE SHIFT, PATIENT KEPT CLEAN AND DRY ALL NEEDS MET WILL CONTINUE TO MONITOR.
[2022-02-14] MEDS: NEOMY SULF/BACITRAC ZN/POLY 15 GM TUBE TP SCH (21:40)
[2022-02-14] MEDS: APIXABAN 2.5 MG TABLET PO SCH (22:00)
[2022-02-14] MEDS: ACETAMINOPHEN 325 MG TABLET PO PRN (22:40)
[2022-02-14] MEDS: VOXELOTOR 500 MG PO SCH (22:40)
[2022-02-14] MEDS: LISINOPRIL (5MG) 5 MG TABLET PO SCH (22:48)
--- NOTE | 2022-02-14 22:50 | NUR ---
RN NOTES: PATIENT WAS NOTED WITH FEVER AT 101.1 TYLENOL 650MG GIVEN FOR FEVER, PATIENT REFUSED ICE PACK AND COLD COMPRESS WILL CONTINUE TO MONITOR
--- NOTE | 2022-02-14 22:56 | NUR ---
RN NOTES: ELIQUIS 5MG AT HS NOT GIVEN DUE TO LOW HGB AT 6.7 CN WAS CONSULTED
[2022-02-15] MEDS ORDERED: VANCOMYCIN 1.25 GM in IV NS 0.9% 250 ML IV SCH ×2
--- NOTE | 2022-02-15 06:47 | NUR ---
MS RN CLOSING NOTES: PATIENT SLEEP IN BED COMFORTABLY, AROUSABLE TO VERBAL STIMULI, BED IN LOW POSITION, CALL LIGHT WITHIN REACH, NO COMPLAIN OF PAIN AND DISCOMFORT AT THIS TIME, ON O2 INHALATION AT 3LPM SATURATING AT 95%, PATIIENT IS A/OX4 AMBULATORY ABLE TO MAKE NEEDS KNOWN, PATIENT JKEPT CLEAN AND DRY ALL NEEDS MET ENDORSE TO INCOMING SHIFT.
[2022-02-15 06:49] LABS: BASOPHILS # (AUTO) 0.1 K/uL (0.0-0.2); BASOPHILS % (AUTO) 0.6 % (0.0-2.0); HEMATOCRIT 21 % (33-45); HEMOGLOBIN 7.2 g/dL (11.5-14.8); LYMPHOCYTES # (AUTO) 0.5 K/uL (0.8-4.8); LYMPHOCYTES % (AUTO) 4.3 % (20.0-44.0); MEAN CORPUSCULAR HGB CONC 34 g/dl (31.0-36.0); MEAN CORPUSCULAR VOLUME 93 fL (82-100); MONOCYTES # (AUTO) 1.3 K/uL (0.1-1.30); MONOCYTES % (AUTO) 12.7 % (2.0-12.0); NEUTROPHILS # (AUTO) 8.2 K/uL (1.8-8.9); NEUTROPHILS % (AUTO) 77.4 % (43.0-81.0); PLATELET COUNT (AUTO) 294 K/uL (150-450); WHITE BLOOD COUNT (AUTO) 10.6 K/uL (4.3-11.0)
[2022-02-15 07:12] LABS: CALCIUM, SERUM 8.3 mg/dL (8.5-10.1); CREATININE 0.6 mg/dL (0.6-1.3); MAGNESIUM 2.1 mg/dL (1.8-2.4); PHOSPHORUS 4.3 mg/dL (2.5-4.9); POTASSIUM 3.8 mmol/L (3.5-5.1)
--- NOTE | 2022-02-15 07:30 | NUR ---
MS RN OPENING NOTE RECEIVED PT ASLEEP IN BED, EASILY AROUSED. PT IS A/O X4, ABLE TO MAKE NEEDS KNOWN. ON O2 AT 5L/MIN VIA NASAL CANNULA, TOLERATING WELL. NO SOB NOTED. NOT IN ANY SIGN OF RESPIRATORY DISTRESS. IV ACCESS ON LAC G#20 AND RIGHT ARM G#20 INTACT AND PATENT. SAFETY MEASURES IN PLACE: BED IN LOWEST AND LOCKED POSITION, SIDE RAILS UP X2, AND CALL LIGHT WITHIN REACH. WILL CONTINUE TO MONITOR PT.
[2022-02-15 08:00] VITALS: BP 107/62
[2022-02-15] MEDS: MAGNESIUM OXIDE 400 MG TABLET PO SCH ×2 (08:55→17:07)
[2022-02-15] MEDS: CALCIUM CARBONATE 500 MG TAB.CHEW PO SCH (08:55)
[2022-02-15] MEDS: CHOLECALCIFEROL 1,000 UNIT TABLET (VIT D3) PO SCH (08:55)
[2022-02-15] MEDS: MULTIVIT W/MINERALS 1 TAB TABLET PO SCH (08:55)
[2022-02-15] MEDS: GABAPENTIN 300 MG CAPSULE PO SCH ×2 (08:55→17:06)
[2022-02-15] MEDS: FOLIC ACID 1 MG TABLET PO SCH (08:55)
[2022-02-15] MEDS: DOCUSATE SODIUM 100 MG CAPSULE PO SCH ×2 (08:56→17:00)
[2022-02-15] MEDS: APIXABAN 5 MG TABLET PO SCH (09:00)
[2022-02-15] MEDS: NEOMY SULF/BACITRAC ZN/POLY 15 GM TUBE TP SCH (09:02)
[2022-02-15] MEDS: CEFEPIME 2 GM in IV D5W 100 ML IV SCH (09:02)
[2022-02-15] MEDS: MORPHINE SULFATE INJ 2 MG/ML DISP.SYRIN IV PRN ×3 (09:22→22:35)
--- NOTE | 2022-02-15 09:25 | NUR ---
RN NOTE PT C/O GENERALIZED BODY PAIN WITH PAIN SCALE LEVEL OF 9/10 AND REQUESTED FOR PAIN MEDICATION. MORPHINE 4MG IVP GIVEN ORDERED PRN Q4HR FOR SEVERE PAIN. WILL MONITOR AND REASSESS PT.
--- NOTE | 2022-02-15 09:53 | NUR ---
RN NOTE CLARIFIED THE ELIQUIS MEDICATION TO MOSES JOHNSON NP. MADE HIM AWARE THAT PT'S HEMOGLOBIN IS 7.2 AND IF OKAY TO GIVE MEDICATION. PER MOSES TO HOLD MEDICATION AT THIS TIME.
[2022-02-15] MEDS ORDERED: POLYETHYLENE GLYCOL 3350 17 GM POWD.PACK PO PRN (12:00)
[2022-02-15] MEDS: VANCOMYCIN 1 GM in IV NS 0.9% 250 ML IV SCH ×2 (12:00→20:53)
[2022-02-15 16:01] VITALS: BP 99/62
[2022-02-15] MEDS: HYDROCODONE/APAP 5/325MG TABLET PO PRN (17:14)
--- NOTE | 2022-02-15 17:18 | NUR ---
RN NOTE PT C/O GENERALIZED BODY PAIN WITH PAIN SCALE LEVEL OF 7/10 AND REQUESTED FOR PAIN MEDICATION. NORCO 5/325MG 1 TAB PO GIVEN ORDERED PRN Q3HR FOR PAIN. WILL MONITOR AND REASSESS PT.
[2022-02-15 17:38] LABS: BAND % (MANUAL) 1 % (0.0-5.0); EOSINOPHILS % (MANUAL) 2 % (0-4); LYMPHOCYTES % (MANUAL) 6 % (16-48); MONOCYTES % (MANUAL) 12 % (0-11.0); NEUTROPHILS % (MANUAL) 79 (42-76)
--- NOTE | 2022-02-15 19:21 | NUR ---
MS RN CLOSING NOTE PT AWAKE AND RESTING IN BED. PT IS A/O X4, ABLE TO MAKE NEEDS KNOWN. ON O2 AT 5L/MIN VIA NASAL CANNULA, TOLERATING WELL. NO SOB NOTED. NOT IN ANY SIGN OF RESPIRATORY DISTRESS. IV ACCESS ON LAC G#20 AND RIGHT ARM G#20 SALINE LOCK. ALL NEEDS ATTENDED. KEPT CLEAN AND COMFORTABLE AT ALL TIMES. SAFETY MEASURES IN PLACE: BED IN LOWEST AND LOCKED POSITION, SIDE RAILS UP X2, AND CALL LIGHT WITHIN REACH. ENDORSED TO CLINICAL PHARMACIST NURSE FOR NATACHA.
[2022-02-15 20:00] VITALS: BP 106/53
--- NOTE | 2022-02-15 20:00 | NUR ---
RN OPENING NOTES: RECEIVED PATIENT AWAKE IN BED, BED IN LOW POSITION CALL LIGHTS WITHIN REACH, NO COMPLAIN OF PAIN AND DISCOMFORT AT THIS TIME, ON O2 INAHALTION AT 5LPM SATURATING WELL, PATIENT IS A/OX4 ABLE TO MAKE MEEDS KNOWN, AMBULATORY WITH SUPERVISION, REMIND THE PATIENT TO USE THE CALL LIGHTS WHEN NEEDED ASSISTANCE, WITH IV LINE AT RIGHT HAND #22 SL, PATIENT ON PAIN MANAGEMENT, ON MONITORING FOR BLEEDING NO BLEEDING WAS OBSERVED DURING THE SHIFT, PATIENT KEPT CLEAN AND DRY ALL NEEDS MET WILL CONTINUE TO MONITOR.
[2022-02-15] MEDS: LISINOPRIL (5MG) 5 MG TABLET PO SCH (22:00)
[2022-02-15] MEDS: APIXABAN 2.5 MG TABLET PO SCH (22:00)
--- NOTE | 2022-02-15 22:00 | NUR ---
RN NOTES: DR AYERS ORDERED TAP WATER ENEMA FOR PATIENT ONE TIME, PATIENT REFUSED,PER PATIENT IF SHE HAD ONE HER STOMACH MIGHT CRAMP AND STRAIN SHES SCARED HEMOGLOBIN MAY DROP ATTEMPT TO CONVINCE THE PATIENT EXPLAIN RISK AND BENEFITS , PATIENT STRONGLY REFUSED.
[2022-02-15] MEDS: VOXELOTOR 500 MG PO SCH (22:09)
[2022-02-15] MEDS: POLYETHYLENE GLYCOL 3350 17 GM POWD.PACK PO SCH (22:10)
--- NOTE | 2022-02-15 22:27 | NUR ---
RN NOTES: 10PM MEDICATION NOT GIVEN: ELIQUIS 10MG PO HS NOTIFIED HOSPITALIST ABOUT HER HX OF HGB YESTERDAY AT 6.7 AND REFUSED BLOOD TRANSFUSION, HGB RIGHT NOW WAS 7.2 AM HOSPITALIST HOLD IT FOR TOMORROW, ALSO PER GRIEVANCE MANAGER CHRISTINA TO HOLD IT AND FOLLOW UP FOR TOMORROW, NO BLEEDING WAS OBSERVED. LISINOPRIL 12.5 MG PO HS NOT GIVEN DUE TO LOW BP OF 106/53
[2022-02-15] MEDS: ACETAMINOPHEN 325 MG TABLET PO PRN (22:35)
--- NOTE | 2022-02-15 22:36 | NUR ---
RN NOTES: TYLENOL 650MG GIVEN FOR BODY TEMP AT 100.1
[2022-02-16] MEDS ORDERED: PIPERACILLIN /TAZOBACTAM 3.375 G in IV D5W 50 ML IV ONE (05:00)
[2022-02-16] MEDS ORDERED: PIPERACILLIN /TAZOBACTAM 3.375 G VIAL IV ONE (05:06)
[2022-02-16] MEDS: HYDROCODONE/APAP 5/325MG TABLET PO PRN ×2 (05:27→10:15)
--- NOTE | 2022-02-16 06:42 | NUR ---
MS RN CLOSING NOTES: PATIENT SLEEP IN BED COMFORTABLY,AROUSABLE TO VERBAL STIMULI, BED IN LOW POSITION CALL LIGHTS WITHIN REACH, NO COMPLAIN OF PAIN AND DISCOMFORT AT THIS TIME, ON O2 INAHALTION AT 5LPM SATURATING WELL, PATIENT IS ON PAIN MANAGEMENT, KEPT CLENA AND DRY ON MONITORING FOR BLEEDING EPISODE NO BLEEDING WAS OBSERVED DURING THE SHIFT, PATIENT KEPT CLEAN AND DRY ALL NEEDS MET ENDORSE TO INCOMING SHIFT,
[2022-02-16 06:47] LABS: BASOPHILS % (AUTO) 0.4 % (0.0-2.0); EOSINOPHILS % (AUTO) 4.4 % (0.0-6.0); LYMPHOCYTES # (AUTO) 2.2 K/uL (0.8-4.8); LYMPHOCYTES % (AUTO) 18.2 % (20.0-44.0); MEAN CORPUSCULAR HGB CONC 34 g/dl (31.0-36.0); MEAN CORPUSCULAR VOLUME 92 fL (82-100); MONOCYTES # (AUTO) 1.4 K/uL (0.1-1.30); MONOCYTES % (AUTO) 12.2 % (2.0-12.0); NEUTROPHILS # (AUTO) 7.7 K/uL (1.8-8.9); NEUTROPHILS % (AUTO) 64.8 % (43.0-81.0); PLATELET COUNT (AUTO) 349 K/uL (150-450); RED BLOOD CELL COUNT(AUTO) 2.16 MIL/uL (4.0-5.2); WHITE BLOOD COUNT (AUTO) 11.9 K/uL (4.3-11.0)
[2022-02-16 07:20] LABS: CALCIUM, SERUM 8.5 mg/dL (8.5-10.1); CREATININE 0.6 mg/dL (0.6-1.3); MAGNESIUM 2.1 mg/dL (1.8-2.4); PHOSPHORUS 4.6 mg/dL (2.5-4.9); POTASSIUM 3.8 mmol/L (3.5-5.1)
[2022-02-16 07:28] LABS: HEMATOCRIT 20 % (33-45); HEMOGLOBIN 6.8 g/dL (11.5-14.8)
--- NOTE | 2022-02-16 07:40 | NUR ---
MS RN OPENING NOTES: RECEIVED PATIENT AWAKE IN BED ,VERBALLY RESPONSIVE , NO COMPLAIN OF PAIN AND DISCOMFORT AT THIS TIME, ON O2 INHALATION AT 5LPM SATURATING WELL, WITH NOB OR DISTRESS NOTED , PATIENT IS A/OX4 ABLE TO MAKE MEEDS KNOWN, SAFETY MEASURES PROVIDED , AMBULATORY WITH SUPERVISION, REMIND THE PATIENT TO USE THE CALL LIGHTS WHEN NEEDED ASSISTANCE, WITH IV LINE AT RIGHT HAND #22 SL, PATIENT ON PAIN MANAGEMENT, ON MONITORING FOR BLEEDING AND PER NIGHT NURSE NO BLEEDING WAS OBSERVED , PATIENT KEPT CLEAN AND DRY ALL NEEDS MET , WILL CONTINUE TO MONITOR.
[2022-02-16 08:21] VITALS: BP 94/58
[2022-02-16] MEDS: POLYETHYLENE GLYCOL 3350 17 GM POWD.PACK PO SCH ×2 (09:00→09:10)
[2022-02-16] MEDS: APIXABAN 5 MG TABLET PO SCH (09:00)
[2022-02-16] MEDS: MULTIVIT W/MINERALS 1 TAB TABLET PO SCH (09:10)
[2022-02-16] MEDS: CHOLECALCIFEROL 1,000 UNIT TABLET (VIT D3) PO SCH (09:10)
[2022-02-16] MEDS: MAGNESIUM OXIDE 400 MG TABLET PO SCH ×2 (09:10→17:37)
[2022-02-16] MEDS: CALCIUM CARBONATE 500 MG TAB.CHEW PO SCH (09:11)
[2022-02-16] MEDS: DOCUSATE SODIUM 100 MG CAPSULE PO SCH ×2 (09:11→17:37)
[2022-02-16] MEDS: FOLIC ACID 1 MG TABLET PO SCH (09:11)
[2022-02-16] MEDS: GABAPENTIN 300 MG CAPSULE PO SCH ×2 (09:14→17:37)
[2022-02-16] MEDS: NEOMY SULF/BACITRAC ZN/POLY 15 GM TUBE TP SCH (11:48)
[2022-02-16] MEDS: PIPERACILLIN /TAZOBACTAM 3.375 G in IV D5W 50 ML IV SCH ×2 (12:45→17:58)
[2022-02-16] MEDS: MORPHINE SULFATE INJ 2 MG/ML DISP.SYRIN IV PRN (17:38)
--- NOTE | 2022-02-16 18:57 | NUR ---
MS RN CLOSING NOTES: PATIENT AWAKE IN BED ,VERBALLY RESPONSIVE , NO COMPLAIN OF PAIN AND DISCOMFORT AT THIS TIME, ON O2 INHALATION AT 5LPM SATURATING WELL, WITH NOB OR DISTRESS NOTED , PATIENT IS A/OX4 ABLE TO MAKE MEEDS KNOWN, SAFETY MEASURES PROVIDED , AMBULATORY WITH SUPERVISION, REMIND THE PATIENT TO USE THE CALL LIGHTS WHEN NEEDED ASSISTANCE, WITH IV LINE AT RIGHT HAND #22 SL, PATIENT ON PAIN MANAGEMENT, ON MONITORING FOR BLEEDING AND NO BLEEDING WAS OBSERVED , ALL DUE MEDS ORDERED , XR OF THE ABDOMEN DONE AND RESULT WITH NONOBSTRUCTIVE BOWEL GAS PATTERN AND MODERATE FECAL MATERIAL IN THE COLON , WITH HGB OG 6.8 AND PATIENT REFUSED BLOOD TRANSFUSION PATIENT KEPT CLEAN AND DRY ALL NEEDS MET , WILL ENDORSED TO NEXT SHIFT
[2022-02-16 20:00] VITALS: BP 109/62
--- NOTE | 2022-02-16 20:09 | NUR ---
MS RN OPENING NOTE PATIENT AWAKE IN BED, ALERT/ORIENTED X 4, PT ABLE TO MAKE NEEDS KNOWN. PATIENT STABLE ON 5 LPM OF 02 VIA SIMPLE MASK, NO S/S OF DISTRESS OR SOB NOTED, BREATHING EVEN AND UNLABORED. IV ACCESS ON RIGHT HAND #22G INTACT AND SALINE LOCKED AT THIS TIME. SAFETY MEASURES IN PLACE: CALL LIGHT WITHIN REACH, SIDE RAILS UP X 2, BED LOCKED IN LOWEST POSITION, HOB ELEVATED, BED ALARM ON. WILL CONTINUE TO MONITOR PATIENT
[2022-02-16 20:47] LABS: BAND % (MANUAL) 1 % (0.0-5.0); EOSINOPHILS % (MANUAL) 2 % (0-4); LYMPHOCYTES % (MANUAL) 20 % (16-48); MONOCYTES % (MANUAL) 7 % (0-11.0); NEUTROPHILS % (MANUAL) 70 (42-76)
[2022-02-16] MEDS: VOXELOTOR 500 MG PO SCH (21:13)
[2022-02-16] MEDS: LISINOPRIL (5MG) 5 MG TABLET PO SCH (21:14)
[2022-02-16] MEDS: APIXABAN 2.5 MG TABLET PO SCH (21:14)
[2022-02-16] MEDS: HYDROCODONE/APAP 10/325MG TABLET PO PRN (21:25)
--- NOTE | 2022-02-16 21:58 | NUR ---
MS RN NOTE PATIENT REQUESTING MIRALAX, HAS SCHEDULED MIRALAX AT 9 AM BUT REFUSED THIS AM. CONTACTED SPRINKLING TRUCK DRIVER MD WITH ONE TIME ORDER OF MIRALAX. ORDER VERIFIED AND CARRIED OUT
[2022-02-16] MEDS ORDERED: POLYETHYLENE GLYCOL 3350 17 GM POWD.PACK PO ONE (22:00)
[2022-02-17] MEDS: PIPERACILLIN /TAZOBACTAM 3.375 G in IV D5W 50 ML IV SCH ×2 (00:27→06:27)
[2022-02-17] MEDS: MORPHINE SULFATE INJ 2 MG/ML DISP.SYRIN IV PRN (06:46)
--- NOTE | 2022-02-17 06:55 | NUR ---
MS RN CLOSING NOTE PATIENT AWAKE IN BED, ALERT/ORIENTED X 4, PT ABLE TO MAKE NEEDS KNOWN. PT WAS C/O OF 9/10 GENERALIZED PAIN, MORPHINE 4 MG IV GIVEN ORDERED. PT STABLE ON 5 LPM OF 02 VIA SIMPLE MASK, NO S/S OF DISTRESS OR SOB NOTED, BREATHING EVEN AND UNLABORED. IV ACCESS ON RIGHT HAND #22G INTACT AND INFUSING ZOSYN @ 100 ML/HR. NO SIGNIFICANT CHANGES THIS SHIFT, PATIENT SLEPT WELL, MEDICATIONS GIVEN ORDERED, PT NEEDS MET THROUGHOUT SHIFT. SAFETY MEASURES IN PLACE: CALL LIGHT WITHIN REACH, SIDE RAILS UP X 2, BED LOCKED IN LOWEST POSITION. WILL ENDORSE TO DAYSHIFT RN FOR CONTINUITY OF CARE
--- NOTE | 2022-02-17 07:00 | NUR ---
MS RN OPENING NOTE RECEIVED PATIENT AWAKE IN BED, ALERT/ORIENTED X 4, PT ABLE TO MAKE NEEDS KNOWN. NO SOB OR CARDIAC DISTRESS NOTED, ON O2 INHALATION @ 5LPM VIA MASK AND TRAN WELL. DENIES PAIN AT THIS TIME. IV ACCESS ON R HAND GAUGE 22 PATENT, INTACT AND SL.SAFETY MEASURES IN PLACE: CALL LIGHT WITHIN REACH, SIDE RAILS UP X 2, BED LOCKED IN LOWEST POSITION. WILL ENDORSE TO DAYSHIFT RN FOR CONTINUITY OF CARE
[2022-02-17 08:16] LABS: BASOPHILS % (AUTO) 0.4 % (0.0-2.0); EOSINOPHILS % (AUTO) 3.3 % (0.0-6.0); LYMPHOCYTES # (AUTO) 1.8 K/uL (0.8-4.8); LYMPHOCYTES % (AUTO) 15.6 % (20.0-44.0); MEAN CORPUSCULAR HGB CONC 35 g/dl (31.0-36.0); MEAN CORPUSCULAR VOLUME 92 fL (82-100); MONOCYTES # (AUTO) 1.4 K/uL (0.1-1.30); MONOCYTES % (AUTO) 11.8 % (2.0-12.0); NEUTROPHILS # (AUTO) 8.1 K/uL (1.8-8.9); NEUTROPHILS % (AUTO) 68.9 % (43.0-81.0); PLATELET COUNT (AUTO) 419 K/uL (150-450); RED BLOOD CELL COUNT(AUTO) 2.11 MIL/uL (4.0-5.2); WHITE BLOOD COUNT (AUTO) 11.7 K/uL (4.3-11.0)
[2022-02-17] MEDS: CHOLECALCIFEROL 1,000 UNIT TABLET (VIT D3) PO SCH (08:26)
[2022-02-17] MEDS: GABAPENTIN 300 MG CAPSULE PO SCH ×2 (08:26→16:25)
[2022-02-17] MEDS: CALCIUM CARBONATE 500 MG TAB.CHEW PO SCH (08:26)
[2022-02-17] MEDS: FOLIC ACID 1 MG TABLET PO SCH (08:26)
[2022-02-17 08:28] LABS: HEMATOCRIT 19 % (33-45); HEMOGLOBIN 6.8 g/dL (11.5-14.8)
[2022-02-17] MEDS: DOCUSATE SODIUM 100 MG CAPSULE PO SCH ×2 (08:28→16:25)
[2022-02-17] MEDS: MAGNESIUM OXIDE 400 MG TABLET PO SCH ×2 (08:29→16:25)
[2022-02-17 08:33] LABS: CALCIUM, SERUM 8.6 mg/dL (8.5-10.1); CREATININE 0.6 mg/dL (0.6-1.3); MAGNESIUM 2.1 mg/dL (1.8-2.4); PHOSPHORUS 4.3 mg/dL (2.5-4.9); POTASSIUM 3.8 mmol/L (3.5-5.1)
[2022-02-17] MEDS: APIXABAN 5 MG TABLET PO SCH (09:00)
--- NOTE | 2022-02-17 09:00 | NUR ---
RN NOTES: received call from [facility]) critical lab result: hgb level 6.8,hct 19. report to Dr mckinney, EMMANUELO pt refused blood transfusion.
[2022-02-17] MEDS: MULTIVIT W/MINERALS 1 TAB TABLET PO SCH (09:02)
[2022-02-17] MEDS: POLYETHYLENE GLYCOL 3350 17 GM POWD.PACK PO SCH (09:02)
[2022-02-17] MEDS: HYDROCODONE/APAP 10/325MG TABLET PO PRN ×2 (09:03→16:04)
[2022-02-17 09:06] VITALS: BP 100/60
[2022-02-17] MEDS: NEOMY SULF/BACITRAC ZN/POLY 15 GM TUBE TP SCH (09:56)
--- NOTE | 2022-02-17 12:59 | NUR ---
RN NOTES: RECEIVED A CALL FROM DR CEBALLOS- BROACH GRINDER [phone], I FORWARD DR CEBALLOS NUMBER TO DR ARMANDO AND DR JOHNSON.
[2022-02-17] MEDS ORDERED: oxyCODONE/APAP (5/325 MG) 1 UDTAB TABLET PO PRN (13:00)
[2022-02-17] MEDS ORDERED: CYANOCOBALAMIN 1,000 MCG/ML VIAL IM SCH (15:30)
[2022-02-17] MEDS: ACETAMINOPHEN 325 MG TABLET PO PRN (15:55)
[2022-02-17 16:22] VITALS: BP 101/59
[2022-02-17 17:06] LABS: ALBUMIN 2.6 g/dL (3.4-5.0); BILIRUBIN,DIRECT 0.3 mg/dL (0.0-0.2); BILIRUBIN,TOTAL 0.8 mg/dL (0.2-1.0); TOTAL PROTEIN, SERUM 6.8 g/dL (6.4-8.2)
--- NOTE | 2022-02-17 18:47 | NUR ---
MS RN CLOSING NOTES: PATIENT AWAKE IN BED, ALERT/ORIENTED X 4, PT ABLE TO MAKE NEEDS KNOWN. NO SOB OR CARDIAC DISTRESS NOTED, ON O2 INHALATION @ 5LPM VIA NC AND TOLERATING WELL. DENIES PAIN AT THIS TIME. IV ACCESS ON R HAND GAUGE 22 PATENT, INTACT AND SL.SAFETY MEASURES IN PLACE: CALL LIGHT WITHIN REACH, SIDE RAILS UP X 2, BED LOCKED IN LOWEST POSITION. WILL ENDORSE TO SUPERVISOR BONDING RN FOR CONTINUITY OF CARE.
--- NOTE | 2022-02-17 19:40 | NUR ---
TELERN FULLY AWAKE, NO NEEDS AT THIS TIME, EATING LATE DINNER. KEPT COMFORTABLE, TO CONTINUE.
[2022-02-17 20:00] VITALS: BP 106/62
[2022-02-17 20:33] VITALS: BP 106/62
--- NOTE | 2022-02-17 21:35 | NUR ---
TELERN MULTIS[employer]OR INTELLIGENCE OFFICER FOR DR ARMANDO INFORMED REGARDING ELIQUIS DOSE FOR TONIGHT . ORDERS RECEIVED TO HOLD DOSE TONIGHT AND LABS IN AM,
[2022-02-17] MEDS: VOXELOTOR 500 MG PO SCH (21:57)
[2022-02-17] MEDS: LISINOPRIL (5MG) 5 MG TABLET PO SCH (21:57)
[2022-02-17] MEDS: APIXABAN 2.5 MG TABLET PO SCH (21:57)
--- NOTE | 2022-02-18 01:30 | NUR ---
MSRN GEN PAIN, NORCO 1 TAB ADMINISTERED.
[2022-02-18] MEDS: HYDROCODONE/APAP 10/325MG TABLET PO PRN ×5 (01:31→23:57)
[2022-02-18 05:48] LABS: EOSINOPHILS % (MANUAL) 2 % (0-4); LYMPHOCYTES % (MANUAL) 11 % (16-48); MONOCYTES % (MANUAL) 13 % (0-11.0); NEUTROPHILS % (MANUAL) 74 (42-76)
--- NOTE | 2022-02-18 06:35 | NUR ---
MSRN NO OTHER NEEDS MADE, HH PER LAB .10/01.
[2022-02-18 06:47] LABS: BASOPHILS # (AUTO) 0.1 K/uL (0.0-0.2); BASOPHILS % (AUTO) 0.8 % (0.0-2.0); LYMPHOCYTES # (AUTO) 1.7 K/uL (0.8-4.8); LYMPHOCYTES % (AUTO) 14.7 % (20.0-44.0); MEAN CORPUSCULAR HGB CONC 35 g/dl (31.0-36.0); MEAN CORPUSCULAR VOLUME 92 fL (82-100); MONOCYTES # (AUTO) 1.5 K/uL (0.1-1.30); NEUTROPHILS # (AUTO) 7.8 K/uL (1.8-8.9); NEUTROPHILS % (AUTO) 67.5 % (43.0-81.0); PLATELET COUNT (AUTO) 515 K/uL (150-450); RED BLOOD CELL COUNT(AUTO) 2.13 MIL/uL (4.0-5.2); WHITE BLOOD COUNT (AUTO) 11.5 K/uL (4.3-11.0)
[2022-02-18 06:52] LABS: HEMATOCRIT 20 % (33-45); HEMOGLOBIN 6.8 g/dL (11.5-14.8)
--- NOTE | 2022-02-18 07:00 | NUR ---
MS RN OPENING NOTE RECEIVED PATIENT AWAKE IN BED, ALERT/ORIENTED X 4, PT ABLE TO MAKE NEEDS KNOWN. NO SOB OR CARDIAC DISTRESS NOTED, ON O2 INHALATION @ 4LPM VIA NC AND TRAN WELL. DENIES PAIN AT THIS TIME. IV ACCESS ON R HAND GAUGE 22 PATENT, INTACT AND SL.SAFETY MEASURES IN PLACE: CALL LIGHT WITHIN REACH, SIDE RAILS UP X 2, BED LOCKED IN LOWEST POSITION. WILL MONITOR ACCORDINGLY.
[2022-02-18 07:23] LABS: CALCIUM, SERUM 8.5 mg/dL (8.5-10.1); CREATININE 0.6 mg/dL (0.6-1.3); MAGNESIUM 2.1 mg/dL (1.8-2.4); PHOSPHORUS 4.6 mg/dL (2.5-4.9); POTASSIUM 3.7 mmol/L (3.5-5.1)
[2022-02-18 08:00] VITALS: BP 94/55
[2022-02-18] MEDS: CALCIUM CARBONATE 500 MG TAB.CHEW PO SCH (08:21)
[2022-02-18] MEDS: MAGNESIUM OXIDE 400 MG TABLET PO SCH ×2 (08:22→16:56)
[2022-02-18] MEDS: CHOLECALCIFEROL 1,000 UNIT TABLET (VIT D3) PO SCH (08:22)
[2022-02-18] MEDS: MULTIVIT W/MINERALS 1 TAB TABLET PO SCH (08:22)
[2022-02-18] MEDS: GABAPENTIN 300 MG CAPSULE PO SCH ×2 (08:22→16:56)
[2022-02-18] MEDS: FOLIC ACID 1 MG TABLET PO SCH (08:22)
[2022-02-18] MEDS: NEOMY SULF/BACITRAC ZN/POLY 15 GM TUBE TP SCH (08:23)
[2022-02-18] MEDS: POLYETHYLENE GLYCOL 3350 17 GM POWD.PACK PO SCH (09:00)
[2022-02-18] MEDS: DOCUSATE SODIUM 100 MG CAPSULE PO SCH ×2 (09:00→16:57)
[2022-02-18] MEDS: APIXABAN 5 MG TABLET PO SCH (09:00)
--- NOTE | 2022-02-18 09:16 | NUR ---
RN NOTES: CLARIFIED VIT B12 ORDER. PER PT SHES TAKING VIT B12 1000MCG PO BID, DREW VIEIRA ORDERED VIT B12 IM. CLARIFIED WITH DR ELIZABETH MD ORDERED FOLLOW HOME MED DOSE ( VIT B12 1000MCG PO BID. ORDERS NOTED AND CARRIED OUT.
--- NOTE | 2022-02-18 09:24 | NUR ---
RN NOTES: PT REFUSED MIRALAX AND COLLACE AND ELIQUIS. PT HAD EPISODES OF DIARRHEA LAST NIGHT AND ENCOURAGED TO DRINK FLUIDS TRAN.
[2022-02-18] MEDS: CYANOCOBALAMIN 500 MCG TABLET PO SCH ×2 (09:38→16:56)
[2022-02-18 10:06] LABS: BASOPHILS % (MANUAL) 0 % (0.0-2.0); EOSINOPHILS % (MANUAL) 2 % (0-4); LYMPHOCYTES % (MANUAL) 24 % (16-48); MONOCYTES % (MANUAL) 13 % (0-11.0); NEUTROPHILS % (MANUAL) 61 (42-76)
--- NOTE | 2022-02-18 15:26 | NUR ---
RN NOTES: SEEN AND EXAMINED BY DREW VIEIRA, ORDERED TO CONTINUE ELIQUIS (0900 AND 2200) ORDERED PTS HGB LEVEL IS STABLE AT THIS TIME. HOLD ELIQUIS IF THERES ANY BLEEDING . PT IS AWARE AND VERBALIZED UNDERSTANDING. WILL ENDORSE.
[2022-02-18 16:00] VITALS: BP 97/58
--- NOTE | 2022-02-18 18:50 | NUR ---
MS RN CLOSING NOTES: PATIENT AWAKE IN BED, ALERT/ORIENTED X 4, PT ABLE TO MAKE NEEDS KNOWN. NO SOB OR CARDIAC DISTRESS NOTED, ON O2 INHALATION @ 4LPM VIA NC AND TOLERATING WELL. DENIES PAIN AT THIS TIME. IV ACCESS ON R HAND GAUGE 22 PATENT, INTACT AND SL.SAFETY MEASURES IN PLACE: CALL LIGHT WITHIN REACH, SIDE RAILS UP X 2, BED LOCKED IN LOWEST POSITION. WILL ENDORSE TO SCHOOL SPEECH LANGUAGE PATHOLOGIST RN FOR CONTINUITY OF CARE.
[2022-02-18 20:00] VITALS: BP 124/58
[2022-02-18] MEDS: VOXELOTOR 500 MG PO SCH ×2 (21:07→23:36)
[2022-02-18] MEDS: APIXABAN 2.5 MG TABLET PO SCH (21:07)
[2022-02-18] MEDS: LISINOPRIL (5MG) 5 MG TABLET PO SCH ×2 (21:07→22:00)
--- NOTE | 2022-02-18 21:14 | NUR ---
RN NOTES: PT REFUSED VOXELOTOR OXBRYTA AND ELIQUIS. PT HAD EPISODES OF DIARRHEA AND ENCOURAGED TO DRINK FLUIDS TOLERATE, WILL CONTINUITY WITH CARE. Addendum: 02/18/22 at 2351 by RENEE BAPTISTE RN PT. TOOK VOXELOTOR OXBRYTA PO, HELD LISINOPRIL DUE TO DECREASE BLOOD PRESSER #100/61 AND NOTIFED MANAGER FIELD SALES YARI RUSSELL, HELD ELIQIUS DUE TO H-H 6.8. CHARGE NURSE MADE AWARE AND MANAGER FIELD SALES YARI PRODUCE SPECIALIST MADE AWARE.
[2022-02-18 22:00] VITALS: BP 100/61
--- NOTE | 2022-02-18 23:51 | NUR ---
RN NOTES: PT. TOOK VOXELOTOR OXBRYTA PO, HELD LISINOPRIL DUE TO DECREASE BLOOD PRESSER #100/61 NOTIFED BASIC COMBATANT SWIMMER YARI CHILD AND ADOLESCENT PSYCHIATRIST, HELD ELIQIUS DUE TO H-H 6.8. CHARGE NURSE MADE AWARE AND BASIC COMBATANT SWIMMER YARI CHILD AND ADOLESCENT PSYCHIATRIST MADE AWARE.
--- NOTE | 2022-02-19 02:08 | NUR ---
RN NOTES: PATIENT RESTING IN BED, A/O X 3, PT. ABLE TO MAKE NEEDS KNOWN. NO SOB OR CARDIAC DISTRESS NOTED, ON O2 INHALATION @ 4LPM VIA NC AND TOLERATING WELL. DENIES PAIN AT THIS TIME. IV ACCESS ON RIGHT HAND GAUGE 22 PATENT, INTACT.SAFETY MEASURES IN PLACE: CALL LIGHT WITHIN REACH, SIDE RAILS UP X 2, BED LOCKED IN LOWEST POSITION. WILL CONTINUITY OF CARE.
[2022-02-19 06:31] LABS: BASOPHILS # (AUTO) 0.1 K/uL (0.0-0.2); BASOPHILS % (AUTO) 0.7 % (0.0-2.0); EOSINOPHILS % (AUTO) 3.7 % (0.0-6.0); HEMATOCRIT 21 % (33-45); HEMOGLOBIN 7.1 g/dL (11.5-14.8); LYMPHOCYTES # (AUTO) 2.2 K/uL (0.8-4.8); LYMPHOCYTES % (AUTO) 19.3 % (20.0-44.0); MEAN CORPUSCULAR HGB CONC 34 g/dl (31.0-36.0); MEAN CORPUSCULAR VOLUME 93 fL (82-100); MONOCYTES # (AUTO) 1.1 K/uL (0.1-1.30); MONOCYTES % (AUTO) 9.7 % (2.0-12.0); NEUTROPHILS # (AUTO) 7.5 K/uL (1.8-8.9); NEUTROPHILS % (AUTO) 66.6 % (43.0-81.0); PLATELET COUNT (AUTO) 599 K/uL (150-450); RED BLOOD CELL COUNT(AUTO) 2.26 MIL/uL (4.0-5.2); WHITE BLOOD COUNT (AUTO) 11.2 K/uL (4.3-11.0)
[2022-02-19 06:56] LABS: CALCIUM, SERUM 8.6 mg/dL (8.5-10.1); CREATININE 0.6 mg/dL (0.6-1.3); PHOSPHORUS 4.5 mg/dL (2.5-4.9); POTASSIUM 3.9 mmol/L (3.5-5.1)
[2022-02-19] MEDS: HYDROCODONE/APAP 10/325MG TABLET PO PRN ×3 (07:45→19:41)
--- NOTE | 2022-02-19 07:50 | NUR ---
RN OPENING NOTE PATIENT AWAKE IN BED RESTING, A/O X 4. NO S/S OF PAIN NOTED AT THIS TIME. ON 4L OXYGEN VIA NC, NO DISTRESS OR SHORTNESS OF BREATH NOTED. IV ACCESS R HAND #22G, INTACT, PATENT AND FLUSHING WELL. FALL AND SAFETY MEASURES IN PLACE, BED ALARM ON, BED IN LOW AND LOCK POSITION, CALL LIGHT AND TABLE WITHIN EASY REACH, SIDE RAILS UP X2. WILL CONTINUE TO MONITOR.
[2022-02-19 08:00] VITALS: BP 100/57
[2022-02-19] MEDS: APIXABAN 5 MG TABLET PO SCH (09:00)
[2022-02-19] MEDS: CHOLECALCIFEROL 1,000 UNIT TABLET (VIT D3) PO SCH (09:01)
[2022-02-19] MEDS: FOLIC ACID 1 MG TABLET PO SCH (09:01)
[2022-02-19] MEDS: CALCIUM CARBONATE 500 MG TAB.CHEW PO SCH (09:01)
[2022-02-19] MEDS: MULTIVIT W/MINERALS 1 TAB TABLET PO SCH (09:01)
[2022-02-19] MEDS: CYANOCOBALAMIN 500 MCG TABLET PO SCH ×2 (09:01→16:49)
[2022-02-19] MEDS: MAGNESIUM OXIDE 400 MG TABLET PO SCH ×2 (09:01→16:49)
[2022-02-19] MEDS: GABAPENTIN 300 MG CAPSULE PO SCH ×2 (09:02→16:49)
[2022-02-19] MEDS: DOCUSATE SODIUM 100 MG CAPSULE PO SCH ×2 (09:02→16:49)
[2022-02-19] MEDS: POLYETHYLENE GLYCOL 3350 17 GM POWD.PACK PO SCH (09:02)
[2022-02-19] MEDS: NEOMY SULF/BACITRAC ZN/POLY 15 GM TUBE TP SCH (09:20)
[2022-02-19 11:11] LABS: EOSINOPHILS % (MANUAL) 5 % (0-4); LYMPHOCYTES % (MANUAL) 21 % (16-48); MONOCYTES % (MANUAL) 13 % (0-11.0); NEUTROPHILS % (MANUAL) 61 (42-76)
[2022-02-19 11:12] LABS: BASOPHILS % (MANUAL) 0 % (0.0-2.0)
[2022-02-19 16:00] VITALS: BP 97/62
--- NOTE | 2022-02-19 19:28 | NUR ---
RN CLOSING NOTE PATIENT AWAKE IN BED RESTING, A/O X 4. NO S/S OF PAIN NOTED AT THIS TIME. ON 2L OXYGEN VIA NC, NO DISTRESS OR SHORTNESS OF BREATH NOTED. IV ACCESS R HAND #22G, INTACT, PATENT AND FLUSHING WELL. SCHEDULED MEDICATIONS ADMINISTERED. FALL AND SAFETY MEASURES IN PLACE, BED ALARM ON, BED IN LOW AND LOCK POSITION, CALL LIGHT AND TABLE WITHIN EASY REACH, SIDE RAILS UP X2. WILL ENDORSE TO RECREATION FACILITY MANAGER.
--- NOTE | 2022-02-19 19:30 | NUR ---
RN OPENING NOTES RECEIVED PT IN BED, AWAKE, WATCHING TV. AOx4, ABLE TO MAKE NEEDS KNOWN. ON RA AND TOLERATING WELL. NO SOB NOTED. NO S/SX OF RESPIRATORY DISTRESS NOTED. IV ACCESS IN R HAND #22G. IV IS INTACT, PATENT, AND FLUSHING WELL. SAFETY PRECAUTIONS IN PLACE: BED IN LOWEST, LOCKED POSITION, SIDERAILS UPx2, AND BRAKES ON. TABLE AND CALL LIGHT WITHIN REACH. ALL NEEDS MET AT THIS TIME.
--- NOTE | 2022-02-19 19:41 | NUR ---
RN NOTES ADMINISTERED NORCO FOR PAIN PER PT REQUEST. VS WNL.
[2022-02-19 20:00] VITALS: BP 98/56
[2022-02-19] MEDS: APIXABAN 2.5 MG TABLET PO SCH (21:29)
--- NOTE | 2022-02-19 21:37 | NUR ---
RN NOTES SPOKE TO DR. VASQUEZ, WHO SAID IT WAS OKAY TO HOLD ELIQUIS SINCE HEMOGLOBIN HAS BEEN LOW AND PATIENT IS REFUSING BLOOD TRANSFUSION.
[2022-02-19] MEDS: LISINOPRIL (5MG) 5 MG TABLET PO SCH (21:39)
[2022-02-19] MEDS: VOXELOTOR 500 MG PO SCH (21:46)
[2022-02-20] MEDS: HYDROCODONE/APAP 10/325MG TABLET PO PRN ×2 (01:16→11:06)
--- NOTE | 2022-02-20 01:16 | NUR ---
RN NOTES ADMINISTERED NORCO FOR PAIN PER PT REQUEST. VS WNL.
[2022-02-20 07:29] LABS: CALCIUM, SERUM 8.6 mg/dL (8.5-10.1); CREATININE 0.6 mg/dL (0.6-1.3); POTASSIUM 3.7 mmol/L (3.5-5.1)
--- NOTE | 2022-02-20 07:38 | NUR ---
RN CLOSING NOTES PT IN BED, ASLEEP, AWAKENS TO VERBAL STIMULI. AOx4, ABLE TO MAKE NEEDS KNOWN. ON RA AND TOLERATING WELL. NO SOB NOTED. NO S/SX OF RESPIRATORY DISTRESS NOTED. IV ACCESS IN R HAND #22G. IV IS INTACT, PATENT, AND FLUSHING WELL. ALL ORDERS CARRIED OUT. ALL NEEDS MET. PT KEPT CLEAN AND DRY. PAIN TREATED THROUGHOUT SHIFT. SAFETY PRECAUTIONS IN PLACE: BED IN LOWEST, LOCKED POSITION, SIDERAILS UPx2, AND BRAKES ON. TABLE AND CALL LIGHT WITHIN REACH. WILL ENDORSE TO ONCOMING SHIFT FOR NATACHA.
[2022-02-20 08:15] VITALS: BP 94/52
[2022-02-20] MEDS: APIXABAN 5 MG TABLET PO SCH (09:00)
[2022-02-20] MEDS: MAGNESIUM OXIDE 400 MG TABLET PO SCH (09:33)
[2022-02-20] MEDS: CALCIUM CARBONATE 500 MG TAB.CHEW PO SCH (09:33)
[2022-02-20] MEDS: MULTIVIT W/MINERALS 1 TAB TABLET PO SCH (09:33)
[2022-02-20] MEDS: FOLIC ACID 1 MG TABLET PO SCH (09:33)
[2022-02-20] MEDS: GABAPENTIN 300 MG CAPSULE PO SCH (09:34)
[2022-02-20] MEDS: CYANOCOBALAMIN 500 MCG TABLET PO SCH (09:34)
[2022-02-20] MEDS: DOCUSATE SODIUM 100 MG CAPSULE PO SCH (09:34)
[2022-02-20] MEDS: POLYETHYLENE GLYCOL 3350 17 GM POWD.PACK PO SCH (09:35)
[2022-02-20] MEDS: NEOMY SULF/BACITRAC ZN/POLY 15 GM TUBE TP SCH (09:41)
[2022-02-20] MEDS: CHOLECALCIFEROL 1,000 UNIT TABLET (VIT D3) PO SCH (09:45)
[2022-02-20] MEDS ORDERED: OXYC1TAB8 PO (11:44)
--- NOTE | 2022-02-20 12:25 | NUR ---
RN DC NOTE- PT DC HOME W FAMILY TO [facility] [place] . PAPERWORK FAXED TO [facility] [place] PER PT REQUEST. IV REMOVED, ID WRISTBAND REMOVED, ESCORTED OFF UNIT
== END 2022-02-20 12:40 | disposition home or self-care (01) | DRG 689 ==
LOC: ER 07:08 → TELE 13:29 → MED 02-14 12:44
PROVIDERS: ADMIT Internal Medicine; ATTEND Nurse Practitioner Acute Care
DX: N39.0 Urinary tract infection, site not specified (principal); D57.00 Hb-SS disease with crisis, unspecified; J90 Pleural effusion, not elsewhere classified; J98.11 Atelectasis; E87.6 Hypokalemia; D18.03 Hemangioma of intra-abdominal structures; Z20.822 Contact with and (suspected) exposure to COVID-19; Z90.49 Acquired absence of other specified parts of digestive tract; Z86.718 Personal history of other venous thrombosis and embolism; Z79.899 Other long term (current) drug therapy; Z87.19 Personal history of other diseases of the digestive system; Z88.5 Allergy status to narcotic agent; Z79.01 Long term (current) use of anticoagulants; Z86.711 Personal history of pulmonary embolism; D64.9 Anemia, unspecified; B95.2 Enterococcus as the cause of diseases classified elsewhere; K56.41 Fecal impaction
CPT/HCPCS: 36415; 71045-TC; 74018; 76700-TC; 80048-TC; 80053-TC; 80076-TC; 80202-TC; 81001; 82247-TC; 82248-TC; 82607-TC; 82728-TC; 83540-TC; 83605-TC; 83615-TC; 83690-TC; 83735-TC; 84100-TC; 84484-TC; 84703-TC; 85025-TC; 85027-TC; 85045-TC; 85378-TC; 86850-TC; 87040-TC; 87081-TC; 87086-TC; 93307-TC; 93970-TC; C9803; G0378; J0692; J1170; J1200; J2270; J2405; J2543; J3370; J7030; J7040; J7050; J7060; Q9967